=== PATIENT | male | born 1975 | race Caucasian/White ===

== ENCOUNTER → 2017-11-30 | Outpatient (CLI) | payer BC ==
--- NOTE | 2017-11-30 11:35 | PCVCIMAG ---
APPROVED REPORT Study performed: 11/30/2017 09:33:23 Exam: Stress Echocardiogram Indication: Elevated CA Score, Family Hx of CAD, HPL Patient Location: Echo lab Stress Nurse: Priti Mack RN Status: routine Ht: 6 ft 0 in HR: 68 bpm BP: 120/78 mmHg Rhythm: NSR Procedure The patient underwent an Exercise Stress Test using the Gonzalez Protocol. Blood pressure, heart rate, and EKG were monitored. An Echocardiogram was performed by fuel verification technician in four stages in quad fashion. At peak stress, four selected images were obtained and placed side by side with resting images for comparison. Stress Test Details Stress Test: Exercise stress testing was performed using a Gonzalez protocol. HR Resting HR: 68 bpmMax Heart Rate (APMHR): 179 bpm Max HR Achieved: 173 bpmTarget HR (85% APMHR): 152 bpm % of APMHR: 96 Recovery HR: 95 bpm HR response to stress: Normal HR response to stress BP Resting BP: 120/78 mmHg Max BP: 158/84 mmHg Recovery BP: 124/74 mmHg ECG Resting ECG: Sinus Rhythm Stress ECG: Sinus Rhythm Arrhythmia: None Recovery ECG: Sinus Rhythm Recovery Arrhythmia: None Clinical Reason for Termination: Maximal effort Exercise duration: 16 min 02 sec Highest Stage Achieved: Stage 6: 5.5 mph at 20% grade. Exercise capacity: 20.30 METs Overall Exercise Capacity for Age: Excellent Stress ECG Conclusion ECG: Non-ischemic Clinical: Non-ischemic Pre-Stress Echo The resting Echocardiogram showed normal left ventricular contractility with an estimated Ejection Fraction of about >55%. Normal wall motion in all segments on baseline images. Post-Stress Echo The stress Echocardiogram showed normal left ventricular contractility with an estimated Ejection Fraction of about 60-65%. Normal augmentation of wall motion in all segments on post stress images. Clinical No clinical or ECG evidence for ischemia. Conclusion Clinical Response: Non-ischemic Exercise Capacity: Superior Stress ECG Response: Non-ischemic Stress Echo Images: Non-ischemic The left ventricle is normal in size and wall thickness in both the rest and stress images. Other Information Study Quality: Good <Conclusion> The left ventricle is normal in size and wall thickness in both the rest and stress images.
== END | disposition home or self-care (01) ==
LOC: PCVCIMAG 13:28
PROVIDERS: ATTEND Hospitalist
DX: R93.1 Abnormal findings on diagnostic imaging of heart and coronary circulation (principal)
CPT/HCPCS: 93325; 93351